=== PATIENT | male | born 1935 | race Hispanic/Latino ===

== ENCOUNTER 2020-11-05 09:37 | Inpatient (IN) | payer OTHER, MEDICARE ==
[~2020-11-05] VITALS: Ht 167.6 cm; Wt 74.8 kg
[2020-11-05] VITALS (7 sets, daily range): BP systolic 92–142; BP diastolic 49–72
[2020-11-05 10:16] LABS: HEMATOCRIT 38.1 % (42-54); MEAN CORPUSCULAR HEMOGLOBIN 29.7 pg (27.0-33.0); MEAN CORPUSCULAR HGB CONC 34.1 g/dL (32.0-36.0); PLATELET COUNT (AUTO) 249 K/uL (130-400); RED BLOOD CELL COUNT(AUTO) 4.38 MIL/uL (4.50-6.20); RED CELL DISTRIBUTION WIDTH 13.9 % (11.0-15.5); WHITE BLOOD COUNT (AUTO) 12.5 K/uL (4.8-10.8)
[2020-11-05 10:28] LABS: CREATININE 0.9 mg/dL (0.5-1.5); POTASSIUM 3.5 mmol/L (3.5-5.1)
[2020-11-05] MEDS ORDERED: HUMAN PROTHROMBIN COMPLX(PCC) 500 UNIT KIT IV SCH (10:30)
[2020-11-05 10:37] LABS: ALBUMIN 3.7 g/dL (3.5-5.0); BILIRUBIN,TOTAL 0.6 mg/dL (0.2-1.0); INR 1.05 (0.85-1.15); PROTHROMBIN TIME 11.4 SEC (9.6-11.6); TOTAL PROTEIN, SERUM 8.5 g/dL (6.0-8.3)
[2020-11-05 10:39] LABS: PARTIAL THROMBOPLASTIN TIME 30.9 SEC (26.3-35.5)
[2020-11-05 10:43] LABS: EOSINOPHILS % (MANUAL) 2 % (1-6); LYMPHOCYTES % (MANUAL) 11 % (22-44); MAN.DIFF COMMENT-IMPRESSION MANUAL DIFFERENTIAL; MONOCYTES % (MANUAL) 5 % (2-9); PLATELET MORPHOLOGY COMMENT ADEQUATE; SEGMENTED NEUTROPHILS % 82 % (40-70)
[2020-11-05] MEDS ORDERED: ONDANSETRON 4MG INJ ONE (10:45)
[2020-11-05] MEDS ORDERED: MORPHINE 2 MG SYG ONE (11:13)
[2020-11-05] MEDS ORDERED: ONDANSETRON 4MG INJ IVP SCH (11:30)
[2020-11-05] MEDS ORDERED: PROMETHAZINE HCL 25 MG/ML 1ML AMPULE IM PRN (11:30)
[2020-11-05] MEDS ORDERED: ACETAMINOPHEN 650 MG SUPPOSITORY RC PRN (11:30)
[2020-11-05] MEDS ORDERED: MORPHINE 2 MG SYG IVP PRN (11:30)
[2020-11-05] MEDS ORDERED: LORAZEPAM 2 MG/ML 1 ML VIAL IVP SCH (11:30)
[2020-11-05] MEDS ORDERED: LEVETIRACETAM 1,500 MG in 0.9%NACL 100ML 100 ML IV SCH ×2 (11:30→14:00)
[2020-11-05] MEDS ORDERED: LORAZEPAM 2 MG/ML 1 ML VIAL IM PRN (11:30)
[2020-11-05] MEDS ORDERED: MORPHINE 2 MG SYG IVP SCH (11:30)
[2020-11-05] MEDS ORDERED: LORAZEPAM 2 MG/ML 1 ML VIAL IVP PRN (11:30)
[2020-11-05] MEDS: GLYCOPYRROLATE 1 MG/5 ML SYRINGE IV SCH (13:23)
[2020-11-05] MEDS: LEVETIRACETAM 500 MG in 0.9%NACL 100ML 100 ML IV SCH ×2 (14:00→22:56)
[2020-11-06] VITALS (7 sets, daily range): BP systolic 110–150; BP diastolic 73–91
[2020-11-06] MEDS: GLYCOPYRROLATE 1 MG/5 ML SYRINGE IV SCH ×3 (00:10→23:34)
[2020-11-06] MEDS: LEVETIRACETAM 500 MG in 0.9%NACL 100ML 100 ML IV SCH ×3 (06:09→21:44)
== END 2020-11-07 04:15 | DRG 64 ==
LOC: EDH 09:37 → OBSVTOIN 11:43 → EDHIP 11:43 → INTOOBSV 11:43 → 3DH 11-06 14:24
PROVIDERS: ADMIT Internal Medicine; ATTEND Internal Medicine
DX: I61.9 Nontraumatic intracerebral hemorrhage, unspecified (principal); G93.6 Cerebral edema; F32.9 Major depressive disorder, single episode, unspecified; E78.00 Pure hypercholesterolemia, unspecified; I48.91 Unspecified atrial fibrillation; R56.9 Unspecified convulsions; Z51.5 Encounter for palliative care; Z66 Do not resuscitate; R00.1 Bradycardia, unspecified; Z87.891 Personal history of nicotine dependence
CPT/HCPCS: 36415; 70450; 80053; 82550; 83874; 84484; 85025; 85610; 85730; 86850; 86900; 86901; 93005; 99291; G0378; J1953; J2060; J2405; J3490